=== PATIENT | male | born 1950 | race Caucasian/White ===

== ENCOUNTER 2019-12-07 16:40 | Emergency (ER) | payer MEDICARE ==
[2019-12-07 17:04] VITALS: RESP 18; TEMP 98.7
[2019-12-07] MEDS ORDERED: CEPHALEXIN 500MG STARTER PACK 4 CAP BTL PO STA (17:13)
[2019-12-07] MEDS ORDERED: DIPH,PERTUS(ACELL)TETVAC-LF 0.5 ML VIAL IM ONE (17:13)
[2019-12-07] MEDS ORDERED: CEPHALEXIN 500 MG CAP PO STA (17:13)
--- NOTE | 2019-12-07 17:55 | US ---
EXAMINATION TYPE: US venous doppler duplex LE RT DATE OF EXAM: 12/07/2019 5:48 PM COMPARISON: NONE CLINICAL HISTORY: RLE pain, swelling . Insect bite 11/29/2019. Pain and swelling right leg. No hx of D VT. Patient takes a blood thinner. Patient has A Fib. SIDE PERFORMED: Right TECHNIQUE: The lower extremity deep venous system is examined utilizing real time linear array sonog andrez with graded compression, doppler sonography and color-flow sonography. VESSELS IMAGED: External Iliac Vein (EIV) Common Femoral Vein Deep Femoral Vein Greater Saphenous Vein * Femoral Vein Popliteal Vein Small Saphenous Vein * Proximal Calf Veins (* superficial vessels) Right Leg: No evidence of DVT in veins imaged at this time from prox calf veins to EIV. IMPRESSION: No evidence of right leg deep vein thrombosis.
[2019-12-07 18:22] VITALS: BP 132/79; PULSE 84
--- NOTE | 2019-12-07 18:23 | ED ---
General Adult HPI - General Source: patient, RN notes reviewed, old records reviewed Mode of arrival: ambulatory Limitations: no limitations <Job Huang - Last Filed: 12/07/19 18:20> <Michael Paris - Last Filed: 12/07/19 18:26> - General Chief complaint: Recheck/Abnormal Lab/Rx Stated complaint: insect bite/swelling Time Seen by Provider: 12/07/19 16:56 - History of Present Illness Initial comments: 69-year-old male patient was seen for evaluation of right lower extremity anterior pain and swelling following a bite. Patient reports that approximately one week ago he was on a ladder when he felt something bite him or sting him on the right anterior tibia region. Since then he has had pain and swelling in the right lower extremity. He denies any other acute complaints. Systemic: Pt denies fatigue, fever/chills, rash. Pt denies weakness, night sweats, weight loss. Neuro: Pt denies headache, visual disturbances, syncope or pre-syncope. HEENT: Pt denies ocular discharge or irritation, otalgia, rhinorrhea, pharyngitis or notable lymphadenopathy. Cardiopulmonary: Pt denies chest pain, SOB, heart palpitations, dyspnea on exertion. Abdominal/GI: Pt denies abdominal pain, n/v/d. : Pt denies dysuria, burning w/ urination, frequency/urgency. Denies new onset urinary or bowel incontinence. Neuro: Pt denies new onset weakness, paresthesias. (Job Huang) - Related Data Home Medications Medication Instructions Recorded Confirmed Dabigatran [Pradaxa] 150 mg PO BID 05/03/14 05/10/14 Verapamil HCl [Verapamil ER] 240 mg PO DAILY 05/03/14 05/10/14 Previous Rx's Medication Instructions Recorded Cephalexin [Keflex] 500 mg PO Q6HR 10 Days #40 cap 12/07/19 Allergies Allergy/AdvReac Type Severity Reaction Status Date / Time No Known Allergies Allergy Verified 05/10/14 08:29 Review of Systems ROS Other: All systems not noted in ROS Statement are negative. <Job Huang - Last Filed: 12/07/19 18:20> ROS Other: All systems not noted in ROS Statement are negative. <Michael Paris - Last Filed: 12/07/19 18:26> ROS Statement: Those systems with pertinent positive or pertinent negative responses have been documented in the HPI. Past Medical History Past Medical History: Atrial Fibrillation, Hypertension History of Any Multi-Drug Resistant Organisms: None Reported Past Surgical History: Joint Replacement Additional Past Surgical History / Comment(s): lt elbow surgery Past Anesthesia/Blood Transfusion Reactions: No Reported Reaction Past Psychological History: No Psychological Hx Reported Smoking Status: Never smoker Past Alcohol Use History: None Reported Past Drug Use History: None Reported - Past Family History Father Family Medical History: No Reported History <Job Huang - Last Filed: 12/07/19 18:20> General Exam Limitations: no limitations <Job Huang - Last Filed: 12/07/19 18:20> - General Exam Comments Initial Comments: Constitutional: NAD, AOX3, Pt has pleasant affect. HEENT: NC/AT, trachea midline, neck supple, no lymphadenopathy. Posterior phar ynx non erythematous, without exudates. External ears appear normal, without discharge. Mucous membranes moist. Eyes PERRLA, EOM intact. There is no scleral icterus. No pallor noted. Cardiopulmonary: RRR, no murmurs, rubs or gallops, no JVD noted. Lungs CTAB in anterior and posterior guillaume. +1 peripheral edema right-sided Abdominal exam: Abdomen soft and non-distended. Abdomen non-tender to palpation in all 4 quadrants. Bowel sounds active in LLQ. No hepatosplenomegaly. No ecchymosis Neuro: CN II-XII grossly intact. No nuchal rigidity. No raccon eyes, no thomas sign, no hemotympanum. No cervical spinal tenderness. MSK: Scab noted right anterior midshaft tibia region, palmar localized swelling and erythema. No fluctuance no discharge. Posterior tibialis and radial pulse +2 bilaterally. Sensation intact in upper and lower extremities. Full active ROM in upper and lower extremities (Job Huang) Course <Michael Paris - Last Filed: 12/07/19 18:26> Vital Signs 12/07/19 12/07/19 16:58 18:21 Temperature 98.7 F 98.7 F Pulse Rate 109 H 84 Respiratory 18 18 Rate Blood Pressure 152/89 132/79 O2 Sat by Pulse 98 98 Oximetry - Reevaluation(s) Reevaluation #1: 12/07/19 18:25 PA supervision: I proceeded [id number] evaluation the patient. He does present with complaints of right lower extremity swelling and what he believes was an insect bite to the anterior distal third rao. No overt fevers chills or sweats this happened after being on a ladder within the week he thought he may leave against ladder wasn't sure. Insect bite but then thought it was. Ultrasound negative for DVT. Patient be discharged on appropriate antibiotics. He will be discharged and follow-up with his doctor. I do agree with the assessment and plan additionally there is localized increased erythema no fluctuance no evidence of any drainage or foreign body. (Michael Paris) Medical Decision Making <Job Huang - Last Filed: 12/07/19 18:20> - Medical Decision Making 69-year-old male patient with the for evaluation of right anterior tibial swelling following reported standing. Patient also displayed some soft tissue swelling and erythema localized around a scab. Patient tetanus was updated. An ultrasound performed of the right lower extremity which displayed no sign of DVT. She'll be placed on Keflex 4 times a day for soft tissue skin infection. Case discussed with Dr. Paris. (Job Huang) Disposition Is patient prescribed a controlled substance at d/c from ED?: No <Job Huang - Last Filed: 12/07/19 18:20> <Michael Paris - Last Filed: 12/07/19 18:26> Clinical Impression: Cellulitis Disposition: HOME SELF-CARE Condition: Stable Instructions (If sedation given, give patient instructions): Cellulitis (ED) Additional Instructions: Follow-up with primary care provider tomorrow. Take antibiotics as directed. Return to ER if condition worsens. . Prescriptions: Cephalexin [Keflex] 500 mg PO Q6HR 10 Days #40 cap Referrals: Rocky Fung MD [Primary Care Provider] - 1-2 days
== END 2019-12-07 18:46 | disposition home or self-care (01) ==
LOC: EC 16:40
DX: L03.116 Cellulitis of left lower limb (principal); Z23 Encounter for immunization; I48.91 Unspecified atrial fibrillation; I10 Essential (primary) hypertension; Z79.01 Long term (current) use of anticoagulants; Z79.899 Other long term (current) drug therapy
CPT/HCPCS: 90471; 90715; 99284